=== PATIENT | female | born 1940 | race African-American/Black ===

== ENCOUNTER 2024-09-19 21:13 | Emergency (ER) | payer MEDICARE, OTHER ==
[2024-09-19 21:45] LABS: Bacteria/HPF None Seen HPF (None Seen); CAUTI Indications for Culture Alt mental st,lethar; Glucose, Urine (Dipstick) Normal (Negative); Leukocyte 250 Leu/uL (Negative); Protein, Urine (Dipstick) Negative (Neg-Trace); RBC/HPF 0-3 HPF (0-3); Specific Gravity, Urine 1.007 (1.002-1.036); WBC/HPF 0-3 HPF (0-3)
[2024-09-19 21:47] LABS: Urine Culture Reflex No No
[2024-09-19 23:11] LABS: #Basophils 0.03 10x3/uL (0.0-0.2); #Eosinophils 0.23 10x3/uL (0.0-0.7); #Monocytes 0.52 10x3/uL (0.11-0.59); #Neutrophils 2.70 10x3/uL (1.40-6.50); %Basophils 0.5 % (0.0-1.0); %Eosinophils 4.2 % (0.0-10.0); %Lymphocytes 37.0 % (21.0-51.0); %Monocytes 9.4 % (0.0-10.0); %Neutrophils 48.7 % (42.0-75.0); Hematocrit 39.5 % (36.0-47.0); Hemoglobin 12.4 g/dL (12.0-16.0); Mean Corpuscular Hemoglobin 30.5 pg (27.0-31.0); Mean Corpuscular Volume 97.1 fL (78.0-98.0); Platelet Count 164 10x3/uL (130-400); Red Blood Cell (RBC) Count 4.07 mill/uL (4.20-5.40); White Blood Cell (WBC) Count 5.54 10x3/uL (4.8-10.8)
[2024-09-19] MEDS ORDERED: hydrALAZINE 20 MG/ML VIAL ONE (23:13)
[2024-09-19 23:29] LABS: ALT (SGPT) 15 U/L (Less than 34); AST (SGOT) 28 U/L (11-34); Albumin 3.8 g/dL (3.1-4.5); Alkaline Phosphatase 67 U/L (40-110); Anion Gap 16 mmol/L (10-20); BUN (Urea Nitrogen) 14 mg/dL (9.8-20.1); Bilirubin, Total 0.8 mg/dL (0.3-1.2); Calc. Creatinine Clearance 0 mL/min (70-130); Calcium 9.2 mg/dL (7.8-10.44); Carbon Dioxide 25 mmol/L (23-31); Chloride 106 mmol/L (98-107); Globulin 3.4 g/dL (2.4-3.5); Glucose 99 mg/dL (83-110); Potassium 4.1 mmol/L (3.5-5.1); Sodium 143 mmol/L (136-145)
[2024-09-19 23:33] LABS: Troponin I Less than 0.010 ng/mL (< 0.028)
[2024-09-20] MEDS ORDERED: Acetaminophen 500 MG TAB ONE (04:28)
== END 2024-09-20 05:05 | disposition short-term general hospital (02) ==
LOC: ERS 21:13
DX: R94.31 Abnormal electrocardiogram [ECG] [EKG] (principal); I10 Essential (primary) hypertension
CPT/HCPCS: 80053; 81001; 84484; 85025; 93005; J0360; 96374